=== PATIENT | male | born 1965 | race Asian ===

== ENCOUNTER 2016-05-06 12:05 | Day surgery (SDC) | payer OTHER ==
[~2016-05-06] VITALS: Ht 152.4 cm; Wt 71.8 kg
[2016-05-06 12:51] VITALS: Ht 152.4 cm; Wt 71.8 kg
[2016-05-06 12:54] VITALS: BP 107/73; PULSE 72; RESP 16
[2016-05-06] MEDS ORDERED: NO HOME MEDS (13:04)
[2016-05-06] MEDS ORDERED: FENTAnyl 50 MCG/ML VIAL ONE (14:08)
[2016-05-06] MEDS ORDERED: MIDAZOLAM 1 MG/ML 2 ML INJ ONE ×2 (14:08)
--- NOTE | 2016-05-06 14:20 | GILP ---
DATE OF PROCEDURE: 05/06/2016 PREOPERATIVE DIAGNOSIS: Screening colonoscopy. POSTOPERATIVE DIAGNOSIS: Essentially normal colon. PROCEDURE DONE: Colonoscopy up to cecum. SURGEON: Lindsay Petersen MD DESCRIPTION OF PROCEDURE: The patient was put in left lateral decubitus after obtaining informed co nsent. He was sedated by 3 mg IV Versed and 75 mcg of fentanyl. Very carefully advanced Olympus vi nevaeh pediatric colonoscope all the way to cecum. Ileocecal valve, appendiceal identified. Photograp hy done. Cecum, ascending colon, transverse colon, descending colon normal. Sigmoid colon somewhat tortuous but normal. Rectum is essentially normal including by retroflexion normal. Upon removal of scope, patient had no complication. RECOMMENDATIONS: Follow with the primary MD. Repeat colonoscopy in 10 years. Dictated By: LINDSAY IGLESIAS/DAREN Conf#: [id number] DID#: [id number] CC: MENDEZ ;*EndCC*
== END 2016-05-06 15:20 | disposition home or self-care (01) ==
LOC: GIL 12:05
PROVIDERS: ATTEND Internal Medicine
DX: Z12.11 Encounter for screening for malignant neoplasm of colon (principal)
CPT/HCPCS: 45378; J2250; J3010